=== PATIENT | female | born 1990 | race Hispanic/Latino ===

== ENCOUNTER 2021-04-20 12:15 | Inpatient (IN) | payer MEDICAID ==
[2021-04-21 13:28] VITALS: BMI 20.2
[2021-04-23] MEDS ORDERED: Fentanyl 100 MCG/2 ML VIAL ONE ×2 (06:42→11:27)
[2021-04-23] MEDS ORDERED: HYDROmorphone 0.5 MG/0.5 ML SYRINGE ONE (06:42)
[2021-04-23] MEDS ORDERED: Iothalamate Meglumine 60% 50 ML VIAL FS ONE (06:53)
[2021-04-23] MEDS ORDERED: Midazolam HCl 2 mg/2 ml Vial ONE (07:02)
[2021-04-23] MEDS ORDERED: Dexamethasone 20 MG/5 ML VIAL ONE (07:41)
[2021-04-23] MEDS ORDERED: PHENYLEPHRINE-NS 100 MCG/ML 10 ML SYRINGE ONE (07:41)
[2021-04-23] MEDS ORDERED: ePHEDrine Sulfate 50 MG/10 ML VIAL ONE (07:41)
[2021-04-23] MEDS ORDERED: Lidocaine 1% PF 5 ML VIAL ONE (07:41)
[2021-04-23] MEDS ORDERED: Rocuronium Bromide 10 MG/ML (10ML VIAL) ONE (07:41)
[2021-04-23] MEDS ORDERED: PROPOFOL 200 MG/20 ML VIAL ONE (07:41)
[2021-04-23] MEDS ORDERED: Meperidine HCl/PF 25 MG/ML VIAL SLOW IVP PRN (09:18)
[2021-04-23] MEDS ORDERED: Ondansetron HCl/PF 4 MG/2 ML Vial IVP PRN (09:19)
[2021-04-23] MEDS ORDERED: HYDROmorphone 2 MG/ML VIAL SLOW IVP PRN (09:19)
[2021-04-23] MEDS ORDERED: Promethazine HCl 25 MG/ML VIAL SLOW IVP PRN (09:19)
[2021-04-23] MEDS ORDERED: Meperidine HCl/PF 25 MG/ML VIAL ONE (11:09)
[2021-04-23] MEDS ORDERED: diphenhydrAMINE 25 MG CAP ONE (12:51)
[2021-04-23] MEDS ORDERED: Heparin 1,000 UNITS/ML VIAL ONE (12:51)
== END 2021-04-23 13:35 | disposition home or self-care (01) | DRG 661 ==
LOC: SURG A 04-23 05:52
PROVIDERS: ADMIT Urology; ATTEND Urology
PROC: 0TC03ZZ Extirpation of Matter from Right Kidney, Percutaneous Approach (ICD-10-PCS; principal; 2021-04-23)
PROC: 0T768DZ Dilation of Right Ureter with Intraluminal Device, Via Natural or Artificial Opening Endoscopic (ICD-10-PCS; 2021-04-23)
PROC: 0TP98DZ Removal of Intraluminal Device from Ureter, Via Natural or Artificial Opening Endoscopic (ICD-10-PCS; 2021-04-23)
DX: N20.0 Calculus of kidney (principal); Z98.51 Tubal ligation status; Z90.49 Acquired absence of other specified parts of digestive tract
CPT/HCPCS: 76000; 82365; 88300; J0690; J1170; J1644; J2175; J2250; J3010; Q0163; Q9961

== ENCOUNTER 2022-10-21 14:16 | Emergency (ER) | payer MEDICAID ==
[2022-10-21] MEDS ORDERED: Hydrocortisone Sod Succ/PF 100 mg/2 ml Vial ONE (16:12)
== END 2022-10-21 16:30 | disposition home or self-care (01) ==
LOC: ERS 14:16
DX: L23.7 Allergic contact dermatitis due to plants, except food (principal)
CPT/HCPCS: 96372; 99282; J1720